=== PATIENT | female | born 1945 | race Caucasian/White ===

== ENCOUNTER 2025-01-11 07:51 | Day surgery (SDC) | payer MEDICARE, OTHER ==
[~2025-01-11] VITALS: Ht 154.9 cm; Wt 63.3 kg
[2025-01-11] VITALS (9 sets, daily range): BP systolic 105–138; BP diastolic 43–67; PULSE 59–65; RESP 14–16; TEMP 97.7; O2SAT 91–97
[~2025-01-11 07:51] MED LIST: ASPI81TA52 PO; ATOR40TA PO; BACL20TA PO; CELE200C PO; CITA20TA19 PO; ESOM40CA PO; GLIP5TAB3 PO; INSU100I31 SQ; METF500T PO; NOVRI SQ; PREG50CA PO; TOPI25TA15 PO
[2025-01-11] MEDS ORDERED: CLOP75TA34 PO (08:38)
[2025-01-11] MEDS ORDERED: NITR0.4T51 SL (08:38)
[2025-01-11] MEDS ORDERED: ATOR-2 PO (08:38)
[2025-01-11] MEDS ORDERED: METF-438 PO (08:38)
[2025-01-11] MEDS ORDERED: CITA10TA93 PO (08:38)
[2025-01-11] MEDS ORDERED: METO-395 PO (08:39)
[2025-01-11] MEDS ORDERED: CYCL-1 PO (08:41)
[2025-01-11 09:11] LABS: MEAN PLATELET VOLUME 7.1 FL (7.4-10.4); RED CELL DISTRIBUTION WIDTH 14.9 % (11.5-14.5)
[2025-01-11 09:23] LABS: CREATININE 0.73 MG/DL (0.40-0.90); TOTAL CARBON DIOXIDE 28.8 MMOL/L (24-32); eCRCL 48 ML/MIN; eGFR 77 ML/MIN
[2025-01-11 09:24] LABS: INR 1.1 INR
--- NOTE | 2025-01-11 10:04 | ELECTROCARDIOGRAPH REPORT ---
[facility] Test Date: 2025-01-11 Test Time: 10:01:34 Pat Name: SARAH MOREAU Department: [facility] Patient ID: [facility]-[id number] Room: Gender: F Whirley Operator: : 1945 Requested By: YARITZA GRIMM Order Number: [id number] Reading MD: Measurements Intervals [place] Rate: 74 P: 76 OR: 159 QRS: 15 QRSD: 160 T: 198 QT: 441 QTc: 490 Interpretive Statements Sinus rhythm Left bundle branch block Please click the below link to view image of tracing.
[2025-01-11] MEDS: sodium bicarbonate 1meq/ml syr 150 ML in dextrose 5%-water 1,000 ML IV ONE (10:22)
[2025-01-11] MEDS ORDERED: LIDOcaine 1% (10mg/ml) 2ml vial ONE (11:26)
[2025-01-11] MEDS ORDERED: verapamil 2.5 mg/ml inj IV ONE (11:26)
[2025-01-11] MEDS ORDERED: midazolam 1 mg/ML 2ml injection ONE ×2 (11:27→11:52)
[2025-01-11] MEDS ORDERED: fentaNYL/PF 50MCG/1 ML 2ML syringe ONE (11:27)
[2025-01-11] MEDS ORDERED: heparin 1,000unit/ml 10ml vial 10 ML ONE (11:27)
[2025-01-11] MEDS ORDERED: iohexol 350 MG/ML 50ML vial IV ONE (11:27)
[2025-01-11] MEDS ORDERED: nitroGLYCERIN 500mcg/5mL D5W 5 ML IV ONE (11:30)
[2025-01-11] MEDS ORDERED: LIDOcaine 1% 30ml preserv. free vial ONE (12:02)
[2025-01-11] MEDS ORDERED: ondansetron/PF 4mg/2ml inj IV PRN (12:55)
--- NOTE | 2025-01-11 13:58 | CARDIOLOGY REPORT ---
DATE OF SERVICE: 01/11/2025 DICTATING PHYSICIAN: YARITZA GRIMM DO CARDIAC CATHETERIZATION REPORT REFERRING PHYSICIAN: Scarlett Lux MD CLINICAL HISTORY: This 79-year-old woman has a prior history of bifurcation LAD stenting in 2017. She is now experiencing recurring episodes of chest pain suggestive of angina pectoris. PROCEDURES PERFORMED: * Left heart catheterization. * Left ventriculography. * Selective coronary arteriography. * 45 minutes of conscious sedation supervision. DESCRIPTION OF PROCEDURE: The patient was sedated with fentanyl and Versed. She was then prepared and draped in the usual manner. The right radial area was infiltrated with 1% lidocaine using a micropuncture set and a Seldinger technique. A 6-Icelandic sheath was placed in the radial artery. 200 mcg of nitroglycerin and 2.5 mg of verapamil were directly injected into the radial artery. 5000 units of heparin were given in a peripheral IV. Left heart catheterization and left ventriculography were performed using a 6-Icelandic pigtail catheter. The coronary arteriography was performed using a 6-Icelandic Kimny catheter. The radial sheath was then removed and Vasc band was applied. RESULTS: HEMODYNAMIC DATA: The left ventricular end diastolic pressure was 8 mmHg. There was no significant gradient across the aortic valve. CORONARY ARTERIOGRAPHY: The coronary arteriograms were technically satisfactory. The patient had a right dominant system. RIGHT CORONARY ARTERY: The right coronary was a large mainstem vessel. There was a large posterior descending branch and one small posterolateral branch. There were no obstructive lesions in the right coronary artery. LEFT MAIN CORONARY ARTERY: The left main was a large unobstructed vessel bifurcating into left anterior descending and circumflex coronary arteries. LEFT ANTERIOR DESCENDING CORONARY ARTERY: The LAD was a [id number] mainstem vessel with a transapical distribution. There was a large first diagonal which took its origin proximally. There was a tiny second diagonal taking its origin from the mid LAD. The stent in the mainstem LAD was widely patent. A stent in the diagonal was patent; however, the origin of the diagonal was narrowed by about 40%, which is better than it appeared after bifurcation stenting in 2017. CIRCUMFLEX CORONARY ARTERY: The circumflex was a large mainstem vessel. There was a small to medium-sized first obtuse marginal that took its origin very proximally and had the distribution of an intermediate artery. There was a small second obtuse marginal. There was a large inferior obtuse marginal and a small posterolateral branch. There were no obstructive lesions in the circumflex coronary artery, although there was about a 40% narrowing at the origin of the large inferior obtuse marginal branch. CONCLUSIONS: * No evidence for high-grade obstructive coronary artery disease; however, there were 40% areas of narrowing at the origin of the principal LAD diagonal and at the origin of the largest of 3 obtuse marginal branches of the circumflex coronary artery. * Imaging of the LAD demonstrated a widely patent stent within the mainstem vessel and about a 40% narrowing at the origin of the stented diagonal branch, which is less narrowing immediately after bifurcation stenting in 2017. * Left ventricular function was reasonably good. There was posterobasal and inferior hypokinesis, but the overall ejection fraction was estimated to be at least 55%. RECOMMENDATIONS: Ongoing medical therapy. YARITZA GRIMM DO TID: [id number] RECEIPT: [id number] AVERY/SALEEM SHELLEY
== END 2025-01-11 15:55 | disposition home or self-care (01) ==
LOC: SSTAY O 07:51
PROVIDERS: ATTEND Internal Medicine Cardiovascular Disease
DX: I25.118 Atherosclerotic heart disease of native coronary artery with other forms of angina pectoris (principal); I49.3 Ventricular premature depolarization; E11.9 Type 2 diabetes mellitus without complications; G47.30 Sleep apnea, unspecified; E78.5 Hyperlipidemia, unspecified; K21.9 Gastro-esophageal reflux disease without esophagitis; Z79.02 Long term (current) use of antithrombotics/antiplatelets; Z79.84 Long term (current) use of oral hypoglycemic drugs; Z79.899 Other long term (current) drug therapy; Z90.49 Acquired absence of other specified parts of digestive tract; Z90.710 Acquired absence of both cervix and uterus; Z90.722 Acquired absence of ovaries, bilateral; Z90.89 Acquired absence of other organs; Z98.890 Other specified postprocedural states; Z88.5 Allergy status to narcotic agent; Z88.8 Allergy status to other drugs, medicaments and biological substances; Z82.49 Family history of ischemic heart disease and other diseases of the circulatory system
CPT/HCPCS: 36415; 80048; 83735; 85025; 85610; 93005; 93458; 99152; 99153; A6258; A6402; C1894; J1644; J2003; J2250; J3010; J3490; J7030; J7070; Q0163; Q9967; Z7610